=== PATIENT | female | born 1980 | race Caucasian/White ===

== ENCOUNTER 2020-04-21 13:48 | Emergency (ER) | payer MEDICAID ==
[~2020-04-21] VITALS: Ht 157.5 cm; Wt 54.5 kg
[2020-04-21] MEDS ORDERED: ACETAMINOPHEN 325MG TABLET PO ONE (15:30)
[2020-04-21 16:30] VITALS: BP 131/78
== END 2020-04-21 17:55 | disposition home or self-care (01) ==
LOC: ER 14:09
DX: R07.89 Other chest pain (principal); Z98.890 Other specified postprocedural states
CPT/HCPCS: 71045; 76805; 93005; 99285

== ENCOUNTER 2020-08-21 20:47 | Emergency (ER) | payer MEDICAID ==
[~2020-08-21] VITALS: Ht 152.4 cm; Wt 61.0 kg
[2020-08-21 20:59] VITALS: BP 135/80
[2020-08-21] MEDS ORDERED: ACETAMINOPHEN 325MG TABLET PO ONE (21:30)
== END 2020-08-21 23:03 | disposition home or self-care (01) ==
LOC: ER 20:47
DX: S92.351A Displaced fracture of fifth metatarsal bone, right foot, initial encounter for closed fracture (principal); X50.1XXA Overexertion from prolonged static or awkward postures, initial encounter; Y93.01 Activity, walking, marching and hiking; Y92.89 Other specified places as the place of occurrence of the external cause
CPT/HCPCS: 29515; 73610; 73630; 99284

== ENCOUNTER 2024-09-14 23:48 | Emergency (ER) | payer MEDICAID ==
[~2024-09-14] VITALS: Ht 157.5 cm; Wt 73.0 kg
[2024-09-14 23:53] VITALS: TEMP 36.7; O2SAT 100
[2024-09-15 00:28] LABS: BASOPHILS % 0.6 % (0.0-2.0); EOSINOPHILS % 0.5 % (0.0-5.0); HEMATOCRIT. 37.1 % (36.0-48.0); HEMOGLOBIN. 12.5 g/dL (12.0-16.0); LYMPHOCYTES % 27.8 % (20.0-50.0); MEAN CORPUSCULAR HGB CONC 33.8 g/dL (31.0-37.0); MEAN CORPUSCULAR VOLUME 88.8 fL (81.0-99.0); MEAN PLATELET VOLUME 7.6 fl (7.4-10.4); MONOCYTES % 4.9 % (2.0-8.0); NEUTROPHILS % 66.2 % (40.0-76.0); PLATELET 340 x1000/uL (130-400); RED BLOOD CELL COUNT 4.18 mill/uL (4.2-5.4); RED CELL DISTRIBUTION WIDTH 13.7 % (11.6-14.6); WHITE BLOOD COUNT 10.6 x1000/uL (4.5-11.0)
[2024-09-15 00:36] LABS: CHLORIDE 101 mEq/L (98-107); POTASSIUM 3.1 mEq/L (3.5-5.1); SODIUM 139 mEq/L (136-145)
[2024-09-15 00:37] LABS: CARBON DIOXIDE 26 mEq/L (21-32)
[2024-09-15 00:42] LABS: CREATININE 0.8 mg/dL (0.6-1.0); GLUCOSE 124 mg/dL (70-105); UREA NITROGEN BLOOD 11 mg/dL (9-23)
[2024-09-15] MEDS: SODIUM CHLORIDE 0.9% 1,000 ML IV ONE (00:46)
[2024-09-15] MEDS: ACETAMINOPHEN 1000MG/100ML 100 ML IV ONE (00:46)
[2024-09-15] MEDS: METOCLOPRAMIDE HCL 10MG/2ML VIAL IV ONE (00:54)
[2024-09-15 01:02] LABS: B-HCG QUANTITATIVE 5082 mIU/mL (<3)
[2024-09-15] MEDS: FENTANYL CITRATE/PF 50MCG/ML 2ML VIAL IV ONE (01:06)
[2024-09-15] MEDS ORDERED: ACET-2708 MT (02:53)
[2024-09-15] MEDS ORDERED: ONDA4TAB50 MT (02:53)
[2024-09-15 03:38] VITALS: BP 119/60; PULSE 76; RESP 19; O2SAT 100
== END 2024-09-15 03:48 | disposition home or self-care (01) ==
LOC: ER 23:48
DX: O03.83 Metabolic disorder following complete or unspecified spontaneous abortion (principal); R10.2 Pelvic and perineal pain; Z98.890 Other specified postprocedural states; Z79.899 Other long term (current) drug therapy; Z3A.12 12 weeks gestation of pregnancy
CPT/HCPCS: 99285; 36415; 96365; 76801; 96375; 80048; 84702; 85025; 86850; 86900; 86901; 76817; J3010; J2765; J7030; J0131